=== PATIENT | male | born 1975 | race Caucasian/White ===

== ENCOUNTER 2019-04-05 21:55 | Observation (INO) ==
[2019-04-05] MEDS ORDERED: ASPIRIN 325 MG TABLET PO STA (22:19)
[2019-04-05] MEDS ORDERED: MORPHINE 4 MG/1 ML VIAL IV STA (22:19)
[2019-04-05] MEDS ORDERED: SODIUM CHLORIDE 0.9% 500 ML IV STA (22:19)
[2019-04-05] MEDS ORDERED: ONDANSETRON 4 MG/2 ML VIAL IV STA (22:19)
[2019-04-05] MEDS ORDERED: NITROGLYCERIN 2% OINT 1 INCH/GM PACK TOP STA (22:19)
[2019-04-05 22:32] LABS: Basophils % 0.6 % (0.0-0.8); Eosinophils # 0.1 10*3/uL (0.0-0.87); Eosinophils % 1.6 % (0.00-10.9); Hematocrit 43.8 VOL% (42.0-52.0); Hemoglobin 15.2 GM/DL (14.0-18.0); Immature Granulocytes % 0.4 %; Immature Granulocytes Absolute 0.02 #; Lymphocytes # 1.4 10*3/uL (1.4-4.0); Lymphocytes % 26.5 % (21.2-54.2); Mean Corpuscular HGB Conc 34.7 GM/DL (32-36); Mean Corpuscular Volume 89.8 FL (87-102); Mean Platelet Volume 9.9 FL (9.6-12.0); Monocytes % 9.4 % (1.7-12.7); Neutrophils % 61.5 % (38.7-73.9); Platelet Count 157 T/CUMM (130-400); Red Blood Count 4.88 MC/CUMM (3.8-5.5); Red Cell Distribution Width 12.8 % (9.3-17.3); White Blood Count 5.1 T/CUMM (4-12)
[2019-04-05 22:41] LABS: INR 1.2; PT Patient Result 13.3 SECS (9.6-12.2)
[2019-04-05 23:21] LABS: Apearance,Urine CLEAR (Clear); Bilirubin,Urine Negative (Negative); Blood, Urine Negative (Negative); Glucose,Urine (UA) 150 mg/dL (Negative); Hyaline Casts,Urine 1 /LPF (0-3); Ketones,Urine Negative (Negative); Mucus,Urine Occasional /LPF (Occasional); Nitrite,Urine Negative (Negative); Protein,Urine Negative; RBC,Urine <1 /HPF (0-4); Urine Color Yellow (Yellow); Urine Specific Gravity 1.021 (1.001-1.035); WBC,Urine <1 /HPF (0-6)
[2019-04-05 23:24] LABS: Barbiturates Screen,Urine Negative (Negative); Benzodiazepines Screen,Urine Negative (Negative); Cannabinoid Screen,Urine Negative (Negative); Opiate Screen,Urine Negative (Negative); Phencyclidine Screen,Urine Negative (Negative)
[2019-04-05 23:40] LABS: Alanine Aminotransferase 72 U/L (16-61); Albumin 4.1 G/DL (3.4-5.0); Alkaline Phosphatase 83 U/L (45-117); Aspartate Amino Transferase 30 U/L (0-37); Bilirubin,Total < 0.39 MG/DL (0.2-1.0); Calcium 8.4 MG/DL (8.5-10.1); Total Protein 7.4 G/DL (6.4-8.3)
[2019-04-05 23:41] LABS: Blood Urea Nitrogen 13 MG/DL (7-18); Estimated Glom Filtration Rate 110 ML/MIN; Glucose 75 MG/DL (74-106); Osmolality,Calculated 279.3 MOS/KG (273-304)
[2019-04-06] MEDS ORDERED: NICOTINE 21 MG/24 HR PATCH TRANSDERM PRN (01:06)
[2019-04-06] MEDS ORDERED: ACETAMINOPHEN 325 MG TABLET PO PRN (01:06)
[2019-04-06] MEDS ORDERED: ONDANSETRON 4 MG/2 ML VIAL IV PRN (01:06)
[2019-04-06] MEDS ORDERED: NITROGLYCERIN SL 0.4 MG TABLET SL PRN (01:06)
[2019-04-06] MEDS: MORPHINE 4 MG/1 ML VIAL IV PRN ×2 (03:03→08:48)
[2019-04-06 03:06] LABS: Risk Ratio 2.39; Thyroid Stimulating Hormone 2.26 uIU/ml (0.358-3.74); VLDL CHOLESTEROL 16.8 MG/DL
[2019-04-06] MEDS ORDERED: CLOPIDOGREL 75 MG TABLET PO SCH (09:00)
[2019-04-06] MEDS ORDERED: ASPIRIN 325 MG TABLET PO SCH (09:00)
[2019-04-06] MEDS ORDERED: PANTOPRAZOLE 40 MG TABLET PO SCH (09:00)
[2019-04-06] MEDS ORDERED: hydroCHLOROthiazide 25 MG TABLET PO SCH (09:00)
[2019-04-06 11:02] VITALS: BP 157/76
== END 2019-04-06 15:47 ==
LOC: EDSEX → EDBD → EDUNIT# → N.ED 21:55 → N.EDINP 21:55 → N.3W 04-06 02:23
PROVIDERS: ADMIT Family Medicine; ATTEND Family Medicine